=== PATIENT | female | born 1970 | race Two or more races ===

== ENCOUNTER 2018-01-24 02:53 | Emergency (ER) | payer OTHER ==
[2018-01-24 03:24] VITALS: BP 106/70; PULSE 95; RESP 19; O2SAT 100
[2018-01-24] MEDS ORDERED: HALOPERIDOL LACTATE 5 MG/ML AMP IM ONE (03:30)
[2018-01-24] MEDS ORDERED: LORazepam 2 MG/ML VIAL IM ONE (03:30)
[2018-01-24] MEDS ORDERED: diphenhydrAMINE HCL 50 MG/ML VIAL IM ONE (03:30)
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
[2018-01-24 04:51] LABS: AUTOMATED NEUTROPHIL # 3.9 TH/MM3 (1.8-7.7); BASOPHIL % 0.4 % (0.0-2.0); EOSINOPHIL % 0.4 % (0.0-4.0); HEMATOCRIT 37.5 % (35.0-46.0); HEMOGLOBIN 12.8 GM/DL (11.6-15.3); LYMPH % 40.2 % (9.0-44.0); LYMPHOCYTE # 2.9 TH/MM3 (1.0-4.8); MEAN CELL VOLUME 93.2 FL (80.0-100.0); MEAN CORPUSCULAR HEMOGLOBIN 31.7 PG (27.0-34.0); MEAN PLATELET VOLUME 7.5 FL (7.0-11.0); MONO % 4.9 % (0.0-8.0); MONOCYTE # 0.4 TH/MM3 (0-0.9); NEUT % 54.1 % (16.0-70.0); PLATELET COUNT 270 TH/MM3 (150-450); RED BLOOD COUNT 4.03 MIL/MM3 (4.00-5.30); RED CELL DISTRIBUTION WIDTH 13.3 % (11.6-17.2); WHITE BLOOD COUNT 7.3 TH/MM3 (4.0-11.0)
[2018-01-24 05:00] LABS: BICARBONATE 24.1 MEQ/L (21.0-32.0); CALCIUM 8.3 MG/DL (8.5-10.1); CREATININE 0.71 MG/DL (0.50-1.00)
--- NOTE | 2018-01-24 05:16 | RADRPT ---
EXAM DATE/TIME: 01/24/2018 05:01 [place] COMPARISON: No previous studies available for comparison. INDICATIONS : Altered mental status. RADIATION DOSE: 39.27 CTDIvol (mGy) MEDICAL HISTORY : Non-responsive. SURGICAL HISTORY : Non-responsive. ENCOUNTER: Initial ACUITY: 1 day PAIN SCALE: Non-responsive LOCATION: cranial TECHNIQUE: Multiple contiguous axial images were obtained of the head. Using automated exposure control and adj ustment of the mA and/or kV according to patient size, radiation dose was kept as low as reasonably a chievable to obtain optimal diagnostic quality images. DICOM format image data is available electro nically for review and comparison. FINDINGS: CEREBRUM: The ventricles are normal for age. No evidence of midline shift, mass lesion, hemorrhage or acute in farction. No extra-axial fluid collections are seen. POSTERIOR FOSSA: The cerebellum and brainstem are intact. The 4th ventricle is midline. The cerebellopontine angle i s unremarkable. EXTRACRANIAL: The visualized portion of the orbits is intact. SKULL: The calvaria is intact. No evidence of skull fracture. CONCLUSION: 1. No evidence of acute intracranial pathology. No masses are identified. Jeremy Schwarz MD on January 24, 2018 at 5:14 Board Certified Radiologist. This report was verified electronically.
[2018-01-24 14:00] VITALS: BP 104/67; PULSE 93; RESP 18; TEMP 98.2; O2SAT 100
[2018-01-24 18:31] VITALS: BP 122/75; PULSE 82; RESP 16; TEMP 98.6; O2SAT 99
[2018-01-24 23:05] VITALS: BP 140/78; PULSE 77; RESP 18; TEMP 98.6; O2SAT 99
[2018-01-25 02:14] VITALS: BP 113/66; PULSE 69; RESP 16; TEMP 98.1; O2SAT 98
[2018-01-25 06:50] VITALS: BP 127/85; PULSE 68; RESP 18; TEMP 98.6; O2SAT 98
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
[2018-01-25 09:51] VITALS: BP 127/85; PULSE 68; RESP 18; TEMP 98.6; O2SAT 98
--- NOTE | 2018-01-25 10:52 | PD ---
Physical Exam Time Seen by Provider: 10:[address] Whitney has evaluated the patient, lifted the Fried act and cleared the patient for discharge. Data Data Last Documented VS Vital Signs Date Time Temp Pulse Resp B/P (MAP) Pulse Ox O2 Delivery O2 Flow Rate FiO2 01/25/18 09:51 98.6 68 18 127/85 (99) 98 01/25/18 06:50 Room Air Orders Orders Complete Blood Count With Diff (01/24/18 03:17) Thyroid Stimulating Hormone (01/24/18 03:17) Basic Metabolic Panel (Bmp) (01/24/18 03:17) Ed Urine Pregnancytest Poc (01/24/18 03:17) Psych Screen (01/24/18 03:17) Haloperidol Inj (Haldol Inj) (01/24/18 03:30) Lorazepam Inj (Ativan Inj) (01/24/18 03:30) Restraints Violent (01/24/18 03:17) Drug Screen, Random Urine (01/24/18 03:17) Alcohol (Ethanol) (01/24/18 03:17) Diphenhydramine Inj (Benadryl Inj) (01/24/18 03:30) Ct Brain W/O Iv Contrast(Rout) (01/24/18 ) Diet Regular Basic (01/24/18 Breakfast) Diet Regular Basic (01/24/18 Lunch) Diet Regular Basic (01/24/18 Dinner) Diet Regular Basic (01/25/18 Breakfast) Labs Laboratory Tests Test 01/24/18 04:30 White Blood Count 7.3 TH/MM3 Red Blood Count 4.03 MIL/MM3 Hemoglobin 12.8 GM/DL Hematocrit 37.5 % Mean Corpuscular Volume 93.2 FL Mean Corpuscular Hemoglobin 31.7 PG Mean Corpuscular Hemoglobin Concent 34.0 % Red Cell Distribution Width 13.3 % Platelet Count 270 TH/MM3 Mean Platelet Volume 7.5 FL Neutrophils (%) (Auto) 54.1 % Lymphocytes (%) (Auto) 40.2 % Monocytes (%) (Auto) 4.9 % Eosinophils (%) (Auto) 0.4 % Basophils (%) (Auto) 0.4 % Neutrophils # (Auto) 3.9 TH/MM3 Lymphocytes # (Auto) 2.9 TH/MM3 Monocytes # (Auto) 0.4 TH/MM3 Eosinophils # (Auto) 0.0 TH/MM3 Basophils # (Auto) 0.0 TH/MM3 CBC Comment DIFF FINAL Differential Comment Blood Urea Nitrogen 8 MG/DL Creatinine 0.71 MG/DL Random Glucose 88 MG/DL Calcium Level 8.3 MG/DL Sodium Level 138 MEQ/L Potassium Level 3.2 MEQ/L Chloride Level 104 MEQ/L Carbon Dioxide Level 24.1 MEQ/L Anion Gap 10 MEQ/L Estimat Glomerular Filtration Rate 88 ML/MIN Thyroid Stimulating Hormone 3rd Gen 0.784 uIU/ML Urine Opiates Screen NEG Urine Barbiturates Screen NEG Urine Amphetamines Screen NEG Urine Benzodiazepines Screen NEG Urine Cocaine Screen NEG Urine Cannabinoids Screen NEG Ethyl Alcohol Level 184 MG/DL MDM Supervised Visit with [facility]RI: No Narrative Course Dr. Whitney has evaluated the patient, lifted the Fried act and cleared the patient for discharge. Patient contracts safety. Denies suicidal or homicidal ideations. Patient will be provided community resource packet to [facility] for follow-up. Has friends and family for support. Patient was medically cleared by alternate provider prior to psych screening. Patient has been evaluated by psychiatry and and is now cleared for discharge. Diagnosis Primary Impression: Alcohol intoxication Qualified Codes: F10.929 - Alcohol use, unspecified with intoxication, unspecified Additional Impression: Minor head injury Qualified Codes: S09.90XA - Unspecified injury of head, initial encounter Referrals: [facility] (Out patient) [facility] Primary Care Physician Psychiatrist Lizett PULL[facility] Patient Instructions: Abuse of Alcohol (ED), Alcohol Dependence (ED), Alcohol Intoxication (ED), General Instructions, Head Injury (ED) Additional Instruction: Contract safety to your self and others Follow-up with psychiatry Follow-up with primary care provider Follow-up with Charlie Sloan Return to the emergency department immediately with worsening of symptoms Med/Other Pt SpecificInfo: No Change to Meds, No Meds Exist/No RX given Scripts Unable to Obtain Active Prescriptions or Reported Meds Disposition: 01 DISCHARGE HOME Condition: Stable Azalea Clark Jan 25, 2018 10:51
== END 2018-01-25 11:52 | disposition home or self-care (01) ==
LOC: NEPD 02:53 → NEPJ 01-25 11:52
DX: F10.929 Alcohol use, unspecified with intoxication, unspecified (principal); S09.90XA Unspecified injury of head, initial encounter; Y90.6 Blood alcohol level of 120-199 mg/100 ml; Y00.XXXA Assault by blunt object, initial encounter; Z86.59 Personal history of other mental and behavioral disorders; I10 Essential (primary) hypertension; F32.9 Major depressive disorder, single episode, unspecified; F43.10 Post-traumatic stress disorder, unspecified
CPT/HCPCS: 70450; 80048; 80307; 84443; 84703; 85025; 96372; 99285; J1200; J1630; J2060